=== PATIENT | male | born 1995 | race Caucasian/White ===

== ENCOUNTER 2019-05-08 13:23 | Day surgery (SDC) | payer OTHER, SELFPAY ==
[2019-05-08] VITALS (7 sets, daily range): BP systolic 118–159; BP diastolic 60–85; PULSE 56–75; RESP 14–18; TEMP 36.3–36.7; O2SAT 97–100; BMI 29.0
--- NOTE | 2019-05-08 06:48 | HP.PCM_ITS ---
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 Is patient in pain?: No Allergies No Known Allergies Allergy (Unverified 05/06/19 13:18) Medications NK 05/06/19 [History Confirmed 05/06/19] [facility] Medical History (Updated 05/06/19 @ 14:09 by Sonny Teague MD) Pilonidal abscess (Acute) Pilonidal cyst (Acute) Surgical History (Updated 05/06/19 @ 13:16 by Emma Perez) history removal wisdom teeth (Acute) historyclosed reduction left wrist (Acute) Family History (Updated 05/06/19 @ 13:17 by Emma Perez) Grandfather Colon cancer Uncle Hypertension Aunt Hypertension Social History (Updated 05/06/19 @ 14:15 by Sonny Teague MD) Smoking Status: Never smoker alcohol intake: current alcohol intake frequency: a few times a month substance use type: does not use HPI HPI HPI: YESENIA ANDRADE, is a 23 M who presents to the office today for surgical consultation regarding a suspected pilonidal abscess-like cyst. The patient was seen by Dr. Ami Blackwell, [facility]. The patient was prescribed Bactrim DS 800 mg twice daily for a total of 10 days. The patient was referred to Dr. Maria Del Rosario Linda. She saw the patient on April 30, 2019. Her evaluation suggested that the area appeared to be a pilonidal cyst and the patient has been referred for general surgical consultation. The patient states that he has noted a bump there for period of time. It became tender and swollen and started to drain. HPI HPI HPI: YESENIA ANDRADE, is a 23 M who presents to the office today for ROS General General: No weight change, appetite, fatigue, colon cancer, breast cancer or weakness HEENT HEENT: No difficulty swallowing, eye injury, eye surgery, swollen glands or hoarseness Endo Endocrine: No thyroid disease, diabetes mellitus, thyroid cancer, Hair loss, heat intolerance or cold intolerance Skin Skin: No rash or changing moles Breast Breast: No left breast lump, right breast lump, nipple discharge, breast pain, abnormal mammogram, abnormal US or breast enlargement Musc Musculoskeletal: No back problems, arthritis, rheumatoid arthritis, gout or joint pain Cardio Cardiovascular: No murmur, pacemaker, heart disease, atrial fibrillation, high blood pressure, heart attack, heart stent, palpitations, shortness of breat with exertion or chest pain Psych Psychiatric: No depression, anxiety or hearing voices Resp Respiratory: No shortness of breath, No sleep apnea, No cough, No COPD, No asthma, No emphysema, No wheezing Gastro Gastrointestinal: No abdominal pain, No nausea or vomiting, No diarrhea, No constipation, No blood in stool, No acid reflux, No hemorrhoids, No ulcers, No gallbladder problem, No black,tarry stools Steven Hematologic: No blood thinners, No blood disorders, No bleeding, No anemia, No blood clots Neuro Neurologic: No system reviewed and no additional complaints, except as docu, No as per HPI, No abnormal walking, No abnormal hearing, No abnormal movements, No abnormal speech, No behavioral changes, No burning sensations, No confusion, No seizure-like activity, No unsteadiness, No dizziness, No localized weakness, No frequent falls, No headache(s), No lack of coordination, No loss of vision, No memory loss, No numbness, No other visual disturbances, No radiating pain, No restless legs, No sensory deficit, No fainting, No tingling, No tremor(s), No weakness, No other Exam Const General: cooperative, healthy appearing, comfortable, no acute distress Nutritional Appearance: average body habitus Orientation: alert, awake, oriented x3 HENMT Head: normal to inspection Chest Chest palpation & inspection: normal inspection of the chest Breast Palpation: No nipple discharge Resp Effort & Inspection: normal respiratory effort Auscultation: clear to auscultation bilaterally Cardio Rate: regular rate Rhythm: regular rhythm Heart Sounds: no murmurs GI Palpation: no hepatosplenomegaly Auscultation: normal bowel sounds Musc Cervical Spine: normal cervical lordosis Skin Other: Superior sacral cleft to the left small pustule with erythema and induration 1 cm diameter. Pilonidal sinus is noted more inferiorly Neuro Cognition: normal cognition Extrem General: no calf tenderness bilaterally Psych Affect: normal affect Office Procedures Misc Procedure Procedure Performed By: Procedure performed by: John Paul Details Facilitate his definitive surgery which is scheduled as soon as 2 days I recommended that the small area of erythema induration be drained. Timeout informed consent was obtained. There is prepped with Betadine. 1% lidocaine mixed 50-50 with 0.5% Marcaine was used as a local anesthetic. A total of 3 cc was used. An 11 blade was used to make a very small incision. There was no gross purulence emanating there from but clearly there was evidence of a pilonidal tract. He tolerated the procedure well. Sterile dressings were applied. He was given activity and wound care instructions. He desires to schedule for definitive resection Sonny Teague M.D., F.A.C.S. Assessment & Plan Problems 1. Pilonidal abscess L. Plan I had an extensive discussion with Mr. Andrade today. I believe he still has a low-grade active infection despite the Bactrim. I am recommending Augmentin 875 mg p.o. twice daily for 1 week. I discussed with him various treatment options. Absolutely no guarantees of success have been offered. I have offered him a vertical elliptical pilonidal cystectomy. He is aware of the technique, benefit, risk and alternatives. He is aware that I may need to place a drain. He is aware that this is outpatient procedure. He is aware that the hair around the area will need to be treated with clipping or shaving or depilatory agents or waxing or more definitive treatment in order to allow the area to resolve and heal. 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 He is interested in pursuing a definitive treatment. With that in mind I offered him an incision and drainage of the small abscessed area today. We will then schedule and try to expedite his definitive surgery. Sonny Teague M.D., F.A.C.S. Orders Orders: [facility] Procedure Today L. Coding Level of Care Code Off vis,new,level 3 Diagnoses Pilonidal abscess L05.05/06/19 1415 <Electronically signed by Sonny felix MD> Date _ Sonny Teague MD I have re-examined the patient. There are no clinical changes since date of exam.
--- NOTE | 2019-05-08 14:23 | DCINST_ITS ---
Discharge Diet: Light diet - advance as tolerated - if you have questions about your diet instructions, please talk to you doctor. Discharge Activity: May Not Drive - for 3-5 days or while taking narcotic pain medicine. Lifting Restrictions: 10 pounds Call your doctor if your incision/area has: Continuous Slow Oozing, Sudden Increased Bleeding, Increased Pain/ Swelling, Increased Redness, Foul Smelling Discharge Call your doctor if you observe: Fever of 101 or Higher Suture Line Care: Avoid Pulling/Pushing, Avoid Pinching/Bending Additional Dressing/Incision Instructions:: You may change your dressings daily and use a Q-tip and peroxide to cleanse along with the suture line or any drains. Apply dry gauze and tape as needed. If the drain is placed empty, measure, and record it as instructed. Allergies/Adverse Reactions: Allergies No Known Allergies Allergy (Unverified 05/07/19 14:29) Medications to take at Discharge Amoxicillin/Potassium Clav [Amox-Clav 875-125 mg Tablet] 1 ea PO BID 05/07/19 Hydrocodone Bitart/Apap 5-325 [[place] 5MG-325MG] 1 tab PO Q4H PRN PRN 3 Days #12 tab 05/08/19 The following prescriptions were given: Hydrocodone Bitart/Apap 5-325 [[place] 5MG-325MG] 1 tab PO Q4H PRN PRN 3 Days #12 tab PRN Reason: Pain Transmission Status: Received by [employer] [id number] Primary Care Physician: Ami Blackwell DO [Primary Care Provider] - Test Results: Test results from this visit will be discussed in further detail at your follow- up appointment, if applicable. Please Follow Up With: Sonny Teague MD - [phone] When: Call to make an appointment to be seen on Monday
[2019-05-08] MEDS: Cefazolin 2 GM in 0.9% Normal Saline 100 ML IV (14:43)
--- NOTE | 2019-05-08 15:00 | PILCYST_PTH ---
PATIENT: YESENIA QUIROS LOC: [facility] [place] U#:[id number] AGE/SX: 23/M ROOM: RE05/08/[address]: Dr. Sonny Teague MD : 1995 BED: DIS: 05/08/2019 SPEC #: [id number] RECD: 05/08/19 16:35 STATUS: SILVANO PAO #: [id number] AAKASH: 05/08/19 15:[address]: Sonny Teague DEPT: SURGICAL PATHOLOGY RECD BY: Yossi Zafar ENTERED: 05/09/19 08:03 SP TYPE: Pilonidal OTHR DR: Dr. Ami Blackwell, DO Tissues: PILONIDAL TISSUE Procedures: Surgery Specimen Level III HEADER OPERATION: Pilonidal cyst excision PRE-OP DIAGNOSIS: Pilonidal cyst TISSUE SUBMITTED: Pilonidal cyst and sinus MICROSCOPIC DIAGNOSIS Pilonidal cyst and sinus: Consistent with inflamed pilonidal cyst. SJ:elmo 05/10/19 MICROSCOPIC DESCRIPTION Slides are reviewed. GROSS DESCRIPTION Received in fixative is one container labeled with the patient's name and designated pilonidal cyst and sinus. The specimen consists of a velasco-white skin ellipse with underlying tissue measuring 8 x 2 cm and up to 2.5 cm in thickness. Blue dye discoloration is noted. Sections reveal a cyst filled with hair in the underlying tissue. Valve Assembler sections are submitted in three cassettes. / LOGAN:elmo 05/09/19 TC:5 CPT: 45708
--- NOTE | 2019-05-08 15:30 | PCM.OPRPT ---
Problem List (1) Pilonidal abscess Status: Acute Report of Operation Date of Procedure: 05/08/19 Pre-Operative Diagnosis: Pilonidal abscess/cyst/sinus Post-Operative Diagnosis: Same Surgery/Procedure Performed:: Pilonidal cystectomy Description of Surgical Findings:: 23-year-old gentleman was taken the operating room. He underwent general endotracheal intubation anesthesia. He was then placed prone on the table with careful shoulder and pelvic roll. The coccygeal sacral layer was clipper and then Betadine prep. A vertical elliptical excision created supposed to completely excise the recently drained abscess site and additional pores. Methylene blue had been injected into the abscess site. Dissection was continued all the way down through the subtenons tissue to the sacrococcygeal fascia. The item was completely excised intact. The incision measured 12 cm long. Subcutaneous flaps were raised bilaterally. A stab incision was made superior and to the left and a 15 round ALYSA drain was exited secured to skin with 3-0 nylon. The drain was shortened in length. The wound was then closed with a deep suture of interrupted 3-0 Vicryl so as to intermittently secure the raised flaps to the sacrococcygeal fascia. Having completed that suture layer the skin edges were approximated with simple mattress sutures of 3-0 nylon. Her incisional area was anesthetized with 30 cc of 0.5% cocaine. Sterile dressings were applied. Sponge and instrument and needle counts were reported the surgeon be correct. Blood loss was minimal. He tolerated the procedure well and was taken to the recovery area in satisfactory condition without apparent complication. Specimen is the pilonidal abscess/cyst/sinus. Drains a 15 round ALYSA. Blood loss minimal. Sonny Teague M.D., F.A.C.S. Type of Anesthesia:: General Anesthesiologist: Brett Gaines
[2019-05-08] MEDS: Bupivacaine Mpf 0.5% 30 ML VIAL (15:32)
[2019-05-08] MEDS: HYDROcodone Bitartrate/Apap 5/325 Tablet PO (16:55)
== END 2019-05-08 17:52 | disposition home or self-care (01) ==
LOC: SDC 13:24 → AC 13:26
PROVIDERS: Family Provider Internal Medicine; PCP Internal Medicine; Referring Provider Surgery; Visit Provider Surgery
PROC: (CPT 11771; principal; 2019-05-08 14:45)
DX: L05.01 Pilonidal cyst with abscess (principal)
CPT/HCPCS: 00300; 11771; 88304; J7120; J2405; Q9968